=== PATIENT | female | born 1940 | race Caucasian/White ===

== ENCOUNTER → 2018-01-11 16:21 | Outpatient (CLI) | payer MEDICARE, SELFPAY ==
[2018-01-11 17:39] LABS: Anion Gap 10 (5-15); BUN 17 mg/dL (7-18); BUN/Creat Ratio 24.7 RATIO (10-20); Calcium,Total 9.1 mg/dL (8.5-10.1); Chloride 100 mmol/L (98-107); Cholesterol 280 mg/dL (200); Creatinine, Serum 0.69 mg/dL (0.55-1.02); EST Glomerular Filtration Rate 88 mL/min (>60); Est Glom Filt Rate - Afr Amer 106 mL/min (>60); Glucose 85 mg/dL (74-106); High Density Lipoprotein 45 mg/dL; Potassium 3.9 mmol/L (3.5-5.1); Sodium Level 138 mmol/L (136-145); Triglycerides 221 mg/dL; Very Low Density Lipoprotein 44 mg/dL (5-40)
== END ==
PROVIDERS: Family Provider Family Medicine; PCP Family Medicine; Visit Provider Family Medicine
DX: Z00.00 Encounter for general adult medical examination without abnormal findings (principal)
CPT/HCPCS: 36415; 80048; 80061

== ENCOUNTER → 2020-11-04 16:57 | Outpatient (CLI) | payer BC, SELFPAY ==
[2020-11-04 17:57] LABS: Absolute Lymphocyte Count 1.86 X10^3/uL (0.83-4.51); Absolute Neutrophil Count 2.8 X10^3/uL (2.0-7.7); Basophil# 0.02 X10^3/uL; Basophil% 0.4 % (0-1); Eosinophil# 0.13 X10^3/uL; Eosinophils% 2.5 % (0-5); Hematocrit 38.7 % (37-47); Hemoglobin 12.7 g/dL (12.0-15.0); Lymphocyte # 1.86 X10^3/ul (0.83-4.51); Lymphocyte % 35.2 % (19-41); Mean Corp Hgb Conc 32.8 g/dL (32-36); Mean Corpuscular Hgb 29.5 pg (27.0-32.0); Mean Corpuscular Volume 89.8 fL (81-99); Mean Platelet Vol. 11.1 fl (6.2-12.0); Monocyte# 0.43 X10^3/uL; Monocyte% 8.1 % (0-10); NRBC Flagged by Analyzer 0 % (0-5); Neutrophil # 2.84 X10^3/uL (2.7-7.7); Neutrophil % 53.6 % (47-70); Platelet Count 271 K/mm3 (150-450); RBC Distribution Width CV 13.3 % (11.6-14.6); RBC Distribution Width SD 44.2 fl (35.1-43.9); Red Blood Count 4.31 M/mm3 (4.2-5.4); White Blood Count 5.3 K/mm3 (4.4-11.0)
[2020-11-04 18:48] LABS: ALB/GLOB Ratio 1.3 RATIO (0.9-2.4); AST(SGOT) 30 U/L (15-37); Alanine Aminotransfer ALT/SGPT 45 U/L (13-56); Albumin, Serum 3.9 g/dL (3.2-5.0); Alkaline Phosphatase 89 U/L (45-117); Anion Gap 3 (5-15); BUN 15 mg/dL (7-18); BUN/Creat Ratio 25.2 RATIO (10-20); CRP < 2.90 mg/L (0.0-3.0); Calcium,Total 8.4 mg/dL (8.5-10.1); Chloride 104 mmol/L (98-107); EST Glomerular Filtration Rate 103 mL/min (>60); Est Glom Filt Rate - Afr Amer 124 mL/min (>60); Free T3 2.3 pg/mL (2.18-3.98); Globulin 2.9 g/dL (2.2-4.2); Glucose 85 mg/dL (74-106); Potassium 3.9 mmol/L (3.5-5.1); Protein, Total 6.8 g/dL (6.4-8.2); Sodium Level 136 mmol/L (136-145); T4 Free Direct 0.64 ng/dL (0.76-1.46); Thyroid Stim Hormone (TSH) 5.35 uIU/mL (0.358-3.74)
== END ==
PROVIDERS: PCP Family Medicine; Referring Provider Family Medicine; Visit Provider Family Medicine
DX: M13.0 Polyarthritis, unspecified (principal); R79.89 Other specified abnormal findings of blood chemistry
CPT/HCPCS: 36415; 80053; 84439; 84443; 84481; 85025; 86140

== ENCOUNTER → 2022-01-26 | Outpatient (CLI) | payer BC, SELFPAY ==
[2022-01-26 12:18] LABS: Hemoglobin 12.8 g/dL (12.0-15.0); Mean Corpuscular Hgb 29.4 pg (27.0-32.0); Mean Corpuscular Volume 91.7 fL (81-99); Platelet Count 270 K/mm3 (150-450); RBC Distribution Width CV 13.3 % (11.6-14.6); RBC Distribution Width SD 45.1 fl (35.1-43.9); Red Blood Count 4.36 M/mm3 (4.2-5.4); White Blood Count 4.8 K/mm3 (4.4-11.0)
[2022-01-26 12:40] LABS: ALB/GLOB Ratio 1.1 RATIO (0.9-2.4); AST(SGOT) 24 U/L (15-37); Alanine Aminotransfer ALT/SGPT 36 U/L (13-56); Albumin, Serum 3.7 g/dL (3.2-5.0); Alkaline Phosphatase 65 U/L (45-117); Anion Gap 5 (5-15); BUN 16 mg/dL (7-18); BUN/Creat Ratio 24.8 RATIO (10-20); Chloride 100 mmol/L (98-107); Creatinine, Serum 0.65 mg/dL (0.55-1.02); EST Glomerular Filtration Rate 93 mL/min (>60); Est Glom Filt Rate - Afr Amer 113 mL/min (>60); Free T3 2.2 pg/mL (2.18-3.98); Globulin 3.3 g/dL (2.2-4.2); Glucose 84 mg/dL (74-106); Sodium Level 135 mmol/L (136-145); Thyroid Stim Hormone (TSH) 5.96 uIU/mL (0.358-3.74)
== END | disposition home or self-care (01) ==
LOC: MFPLAB 10:35
PROVIDERS: PCP Family Medicine; Referring Provider Family Medicine; Visit Provider Nurse Practitioner Family
DX: R25.2 Cramp and spasm (principal); R79.89 Other specified abnormal findings of blood chemistry
CPT/HCPCS: 36415; 80053; 84439; 84443; 84481; 85027

== ENCOUNTER → 2022-02-15 | Outpatient (CLI) | payer BC, SELFPAY ==
[2022-02-15 12:34] LABS: Magnesium 2.1 mg/dL (1.6-2.6)
== END | disposition home or self-care (01) ==
LOC: MFPLAB 10:40
PROVIDERS: PCP Family Medicine; Visit Provider Nurse Practitioner Family
DX: M62.838 Other muscle spasm (principal)
CPT/HCPCS: 36415; 83735

== ENCOUNTER → 2022-03-28 | Outpatient (CLI) | payer BC, SELFPAY ==
[2022-03-28 15:56] LABS: Thyroid Stim Hormone (TSH) 4.98 uIU/mL (0.358-3.74)
== END | disposition home or self-care (01) ==
LOC: MFPLAB 11:20
PROVIDERS: PCP Family Medicine; Visit Provider Nurse Practitioner Family
DX: R79.89 Other specified abnormal findings of blood chemistry (principal)
CPT/HCPCS: 36415; 84443

== ENCOUNTER 2022-05-27 02:33 | Inpatient (IN) | payer MEDICARE, SELFPAY ==
[2022-05-27 02:34] VITALS: BP 193/83; PULSE 71; RESP 18; TEMP 36.4; O2SAT 100; BMI 22.1
--- NOTE | 2022-05-27 02:58 | CT_ITS ---
STUDY: CT ABDOMEN AND PELVIS WITH CONTRAST REASON FOR EXAM: Female, 81 years old. LLQ pain. TECHNIQUE: IV Contrast: IV 100mL [id number] Enteric contrast: None administered. Axial images obtained. Coronal and sagittal reformatted images provided. Individualized dose optimization techniques were used for this CT. COMPARISON: None. FINDINGS: Partially visualized lower chest: Lung bases unremarkable. Liver: 1 cm well-defined low-density lesion either within or immediately adjacent to the lateral dome of the right lobe, coronal image 55. No other hepatic lesions. Gallbladder and biliary tree: No visible gallstones. No pericholecystic inflammation. No biliary ductal dilation. Pancreas: No pancreatic lesions or inflammation. Spleen: Normal size, no splenic lesions. Adrenal glands: No concerning masses. Kidneys and ureters: Mild bilateral hydronephrosis and proximal hydroureter. No stones. No concerning renal mass. Renal cortical volume within normal limits. Bowel: Appendix not identified. No evidence of appendicitis. No obstruction or inflammation of the bowel. Urinary bladder: No stones or wall thickening. Reproductive:Large complex cystic mass, centered in the left adnexa, but extending across midline in the anterior pelvis, and into the midabdomen, 20 x 12 x 15 cm TRV X AP X CC. This has numerous septations and a nodular, solid component in the left posterior portion of the mass extending into the adnexa. Neither ovary or the uterus is identified separate from this. This has mass effect upon the traversing mid ureters. Vascular: No abdominal aortic aneurysm. Moderate aortoiliac atherosclerosis. Retroperitoneal and peritoneal spaces: Trace ascites. No free air or extraluminal air or abscess. No lymphadenopathy. Osseous: No acute osseous abnormality. Bony demineralization. Prominent degenerative changes lower lumbar spine. Abdominal and pelvic wall: No concerning findings. Any findings described in the findings sections and not included in the impression are incidental and do not require imaging follow-up. CT/Abdomen/Pelvis W IV Cont ONLY IMPRESSION: Large, 20 cm, complex cystic mass filling the anterior upper pelvis and extending into the lower abdomen with a solid nodular component in the left adnexa. 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 Uterine or right ovarian source possible but less likely. The solid, nodular components are suspicious, though not definitive, for malignant neoplasm. No definite metastases identified. A 1 cm hypodensity in or less likely adjacent to the lateral dome of the right lobe of the liver is probably a cyst; a small cystic metastasis could also appear this way but is less likely given the appearance and the fact that there is only one such lesion. The pelvic mass mildly obstructs both mid ureters with resulting mild bilateral hydronephrosis. Electronically Signed: Chino Jean MD at 4:44 EST Reading Location ID and State: [facility] / [place] Tel , Service support ,
--- NOTE | 2022-05-27 03:01 | EDS_ITS ---
HPI HPI - GI History of Present Illness Chief Complaint: Abd Pain Informant: patient Narrative Narrative: Patient is an 81-year-old female with history of hypothyroid as well as multiple abdominal surgeries including hysterectomy presenting with abdominal pain. Patient states tonight around 930 she developed sharp pain in her left lower quadrant. It does not radiate. Its been intermittent in nature. She states she has had a small amount of vomiting with it. About an hour after the pain started she did have a small bowel movement initially was okay and then then. She denies any black or blood in her vomit or her stool. Not taking thing for pain prior to arrival. Has similar episode in March per the where it felt like her bowel was twisted and she sat on the toilet for some time and adhered to a liquid diet and it got better on its own. She is never had it evaluated. No report of fever or chills. No complaints earlier in the day. Denies any numbness or tingling in her legs or back pain. [facility] Medical History Hypothyroidism Home Medications levothyroxine 25 mcg tablet 50 mcg PO DAILY 05/27/22 [History Last Taken Unknown] Allergy/AdvReac Type Severity Reaction Status Date / Time No Known Allergies Allergy Verified 05/27/22 02:37 Social History Smoking Status: Never smoker ROS ROS ED Constitutional Constitutional ED: Denies chills or fever(s) Cardiovascular Cardiovascular: Denies chest pain Respiratory/Chest Respiratory/Chest: Denies cough Gastrointestinal Gastrointestinal: Reports abdominal pain, nausea and vomiting; Denies constipation, diarrhea or melena Genitourinary Genitourinary ED: Denies dysuria or hematuria Musculoskeletal Musculoskeletal: Denies arthralgias, back pain or myalgias Integumentary Denies rash Neurologic Neurologic: Denies paresthesias or weakness Psychiatric Psychiatric: Denies anxiety Hematologic/Lymphatic Hematologic/Lymphatic: Denies easy bleeding or easy bruising EXAM Physical Exam Const Vital Signs: 05/27/22 02:34 05/27/22 05:10 Temperature 97.5 F L Temperature Source Oral Pulse Rate 71 80 Respiratory Rate 18 16 Blood Pressure 193/83 H 175/77 H Blood Pressure Mean 119 109 Pulse Ox 100 95 Oxygen Delivery Method Room Air Room Air Positive well nourished and well developed Constitutional Narrative: Uncomfortable appearing General Appearance ED: well developed; Negative for pallor HEENT Reports moist mucous membranes normocephalic Eyes PERRL Neck supple Resp normal respiratory effort and clear to auscultation bilaterally Cardio regular rate, regular rhythm and no murmurs GI GI Narrative: Mildly distended abdomen. Hyperactive bowel sounds in the left upper quadrant. Small umbilical hernia that is soft and reducible. Patient has significant tenderness and even firmness of the left lower quadrant. No peritoneal signs. No fluid wave on exam. No rebound tenderness. Palpation: Negative for rigid Back/Spine no CVA tenderness Extremity full ROM Extremity Narrative: 1+ bilateral DP pulses General Extremety ED: Negative for edema General Extremity: Negative for edema Neuro moves all extremities Sensorium / Orientation: alert Motor Exam: general weakness Psych mental status grossly normal and thought process normal Skin no wounds General Skin Exam: Negative for jaundice or pallor MDM MDM MDM Narrative Medical decision making narrative: Patient evaluated for severe left lower quadrant abdominal pain. On exam patient does seem to have a distended abdomen and is hypertensive. She has equal distal pulses and I do not think this is a dissection. She does not have a pulsatile mass I do not think this is a ruptured aneurysm. Differential includes diverticulitis, small bowel obstruction, kidney stone as well as other acute intra-abdominal surgical process. Lab work is largely unremarkable including a lactate. Her kidney function is at baseline. She is initially given IV Zofran, fluids and morphine for pain control. Urinalysis is not consistent with infection. CT shows a large 20 cm complex cystic mass filling the pelvis and extending into the lower abdomen with a solid nodular component in the left adnexa most likely left ovarian neoplasm. The pelvic mass is mildly obstructing both mid ureter with resulting mild bilateral hydronephrosis and patient does have a distended bladder. Guzman catheter is placed and patient has over 1600 cc of urine drained. Patient is continue to have pain despite decompression of her bladder and she is given additional 4 mg of IV morphine. Initially spoke with AUDIO DIRECTOR on-call, Dr. Aline Ledezma who agreed that this needs a transfer for [facility] evaluation. Spoke with the patient and her son who state they would like to go to [facility]. Contacted the [facility] transfer line to arrange transfer. Patient is accepted to [facility] by Dr. Turner. Lab Data Attestation: I reviewed the patient's lab results. Labs: Laboratory Results - last 24 hr 05/27/22 05/27/22 05/27/22 02:40 02:40 02:40 WBC 9.5 RBC 4.55 Hgb 13.3 Hct 40.3 MCV 88.6 MCH 29.2 MCHC 33.0 RDW Std Deviation 42.8 RDW Coeff of Judy 13.2 Plt Count 313 MPV 10.2 Immature Gran % (Auto) 0.300 Neut % (Auto) 74.5 H Lymph % (Auto) 17.1 L Wayne % (Auto) 6.1 Eos % (Auto) 1.7 Baso % (Auto) 0.3 Absolute Neuts (auto) 7.1 Absolute Lymphs (auto) 1.63 Nucleated RBC % 0 Sodium 131 L Potassium 3.4 L Chloride 96 L Carbon Dioxide 26.0 Anion Gap 9 BUN 14 Creatinine 0.69 Estim Creat Clear Calc 35.26 Est GFR (MDRD) Af Amer 105 Est GFR (MDRD) Non-Af 86 BUN/Creatinine Ratio 20.3 H Glucose 145 H Lactic Acid 1.8 Calcium 8.9 Total Bilirubin 0.50 AST 20 ALT 33 Alkaline Phosphatase 67 Total Protein 7.4 Albumin 4.2 Globulin 3.2 Albumin/Globulin Ratio 1.3 Urine Color Urine Clarity Urine pH Ur Specific [place] Urine Protein Urine Glucose (UA) Urine Ketones Urine Occult Blood Urine Nitrite Urine Bilirubin Urine Urobilinogen Ur Leukocyte Esterase Urine RBC Urine WBC Ur Squamous Epith Cells Urine Bacteria Urine Mucus 05/27/22 04:20 WBC RBC Hgb Hct MCV MCH MCHC RDW Std Deviation RDW Coeff of Judy Plt Count MPV Immature Gran % (Auto) Neut % (Auto) Lymph % (Auto) Wayne % (Auto) Eos % (Auto) Baso % (Auto) Absolute Neuts (auto) Absolute Lymphs (auto) Nucleated RBC % Sodium Potassium Chloride Carbon Dioxide Anion Gap BUN Creatinine Estim Creat Clear Calc Est GFR (MDRD) Af Amer Est GFR (MDRD) Non-Af BUN/Creatinine Ratio Glucose Lactic Acid Calcium Total Bilirubin AST ALT Alkaline Phosphatase Total Protein Albumin Globulin Albumin/Globulin Ratio Urine Color Yellow Urine Clarity Clear Urine pH 7.0 Ur Specific [place] 1.010 Urine Protein Negative Urine Glucose (UA) Normal Urine Ketones Negative Urine Occult Blood 10 H Urine Nitrite Negative Urine Bilirubin Negative Urine Urobilinogen Normal Ur Leukocyte Esterase Negative Urine RBC 0-5 SEEN Urine WBC 0 SEEN Ur Squamous Epith Cells 0 SEEN Urine Bacteria 0 SEEN Urine Mucus 0 SEEN Radiography Diagnostic Testing: Clinical Impression(s) from Imaging Studies Abdomen/Pelvis CT 05/27/22 02:58 IMPRESSION: Large, 20 cm, complex cystic mass filling the anterior upper pelvis and extending into the lower abdomen with a solid nodular component in the left adnexa. 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 Uterine or right ovarian source possible but less likely. The solid, nodular components are suspicious, though not definitive, for malignant neoplasm. No definite metastases identified. A 1 cm hypodensity in or less likely adjacent to the lateral dome of the right lobe of the liver is probably a cyst; a small cystic metastasis could also appear this way but is less likely given the appearance and the fact that there is only one such lesion. The pelvic mass mildly obstructs both mid ureters with resulting mild bilateral hydronephrosis. Electronically Signed: Chino Jean MD at 4:44 EST Reading Location ID and State: [address] [place] [address] Tel , Service support , Discharge Plan Triage Chief Complaint: Abd Pain ED Provider: Oliva Barajas Dx/Rx/DC Orders Clinical Impression: Mass of left ovary, Acute on chronic urinary retention, Hydronephrosis due to obstruction of bladder, Lower abdominal pain Prescriptions: No Action levothyroxine 25 mcg tablet 50 mcg PO DAILY Label Comments: TAKE 1 TABLET BY MOUTH EVERY MORNING FOR 30 DAYS Primary Care Provider: Desmond Sheth Referrals: Desmond Sheth MD [Primary Care Provider] - Disposition Disposition: Acute Care Hospital Discharge Location: [facility]
[2022-05-27 03:09] LABS: Absolute Lymphocyte Count 1.63 X10^3/uL (0.83-4.51); Absolute Neutrophil Count 7.1 X10^3/uL (2.0-7.7); Basophil# 0.03 X10^3/uL; Basophil% 0.3 % (0-1); Eosinophil# 0.16 X10^3/uL; Eosinophils% 1.7 % (0-5); Hematocrit 40.3 % (37-47); Hemoglobin 13.3 g/dL (12.0-15.0); Lymphocyte # 1.63 X10^3/ul (0.83-4.51); Lymphocyte % 17.1 % (19-41); Mean Corpuscular Hgb 29.2 pg (27.0-32.0); Mean Corpuscular Volume 88.6 fL (81-99); Mean Platelet Vol. 10.2 fl (6.2-12.0); Monocyte# 0.58 X10^3/uL; Monocyte% 6.1 % (0-10); NRBC Flagged by Analyzer 0 % (0-5); Neutrophil % 74.5 % (47-70); Platelet Count 313 K/mm3 (150-450); RBC Distribution Width CV 13.2 % (11.6-14.6); RBC Distribution Width SD 42.8 fl (35.1-43.9); Red Blood Count 4.55 M/mm3 (4.2-5.4); White Blood Count 9.5 K/mm3 (4.4-11.0)
[2022-05-27] MEDS: Ondansetron 4 MG/2 ML Vial IV (03:15)
[2022-05-27] MEDS: 0.9% Normal Saline 1,000 ML 1000 ML IV (03:15)
[2022-05-27] MEDS: Morphine 4 MG/ML Syringe IV ×4 (03:16→17:52)
[2022-05-27 03:43] LABS: ALB/GLOB Ratio 1.3 RATIO (0.9-2.4); AST(SGOT) 20 U/L (15-37); Alanine Aminotransfer ALT/SGPT 33 U/L (13-56); Albumin, Serum 4.2 g/dL (3.2-5.0); Alkaline Phosphatase 67 U/L (45-117); Anion Gap 9 (5-15); BUN 14 mg/dL (7-18); BUN/Creat Ratio 20.3 RATIO (10-20); Calcium,Total 8.9 mg/dL (8.5-10.1); Chloride 96 mmol/L (98-107); Creatinine, Serum 0.69 mg/dL (0.55-1.02); EST Glomerular Filtration Rate 86 mL/min (>60); Est Glom Filt Rate - Afr Amer 105 mL/min (>60); Estimated Creatinine Clearance 35.26 ml/min; Globulin 3.2 g/dL (2.2-4.2); Glucose 145 mg/dL (74-106); Potassium 3.4 mmol/L (3.5-5.1); Protein, Total 7.4 g/dL (6.4-8.2); Sodium Level 131 mmol/L (136-145)
[2022-05-27 03:49] LABS: Lactic Acid 1.8 mmol/L (0.4-1.9)
[2022-05-27 04:29] LABS: Bacteria 0 SEEN /hpf (None Seen); Mucous, Urine 0 SEEN /hpf (<or=2+); Squamous Epithelial Cells - UA 0 SEEN /hpf (5-10); White Blood Cells 0 SEEN /hpf (0-5)
[2022-05-27 04:30] LABS: Color, Urine Yellow (Yellow); Glucose, Dipstick Normal (Normal); Ketone-Dipstick Negative (Negative); Leukocyte Esterase-Dipstick Negative /ul (Negative); Nitrite-Dipstick Negative (Negative); Occult Blood-Urine 10 /ul (Negative); Protein-Dipstick Negative (Negative); Urine Bilirubin Dipstick Negative (Negative); Urine Clarity Clear (Clear); Urine Urobilinogen Normal (Normal)
[2022-05-27 04:49] LABS: Red Blood Cells-Urine 0-5 SEEN /hpf (0-5)
[2022-05-27 05:10] VITALS: BP 175/77; PULSE 80; RESP 16; O2SAT 95
[2022-05-27 09:21] VITALS: BP 111/93
[2022-05-27 15:17] VITALS: BP 128/67; PULSE 73; RESP 16; TEMP 36.8; O2SAT 100
--- NOTE | 2022-05-27 15:49 | ED.RN ---
THIS RN SPOKE WITH PT EXPLAINING UPDATE ON PT TRANSFER SITUATION. PER PT AND PT SON, PT DOES NOT WANT TO BE SENT TO [facility]. SON REPORTS RECENT BAD EXPERIENCE AT [facility] FACILITY. PT AND SON UPDATED THAT DR. CHAPMAN HAS REACHED OUT TO [facility] REQUESTED AND HAVE NOT HEARD BACK FROM THE FACILITY YET. PER SON IT WOULD BE ACCEPTABLE TO SEND PT TO [facility] OR [facility] ALSO. DR. CHAPMAN INFORMED.
[2022-05-27 17:54] VITALS: BP 149/81; PULSE 86; RESP 18; O2SAT 98
--- NOTE | 2022-05-27 17:58 | ED.RN ---
Dinner tray ordered for patient
--- NOTE | 2022-05-27 22:08 | NURSING ---
CALLED FOR UPDATE. SPOKE WITH NANDO WITH THE TRANSFER LINE. HE SAID NO BED STILL, UNFORTUNATELY COULD BE A FEW MORE DAYS, HOWEVER IS PATIENTS CARE BECOMES DETREMENTAL OR ANYTHING CHANGES THAT EFFECTS CARE TO CALL BACK AND THEY CAN CONSULT WITH THE ACCEPTING DOCTOR.
[2022-05-27 22:26] VITALS: BP 127/62; PULSE 92; RESP 16; O2SAT 97
[2022-05-28 01:42] VITALS: BP 143/91; PULSE 98; RESP 15; TEMP 36.7; O2SAT 94
[2022-05-28 01:53] VITALS: BP 143/91; PULSE 98; RESP 15; TEMP 36.7; O2SAT 94
--- NOTE | 2022-05-28 02:00 | PCM.HP.STD ---
HPI - General General Date of Admission: 05/28/22 Date of Service: 05/28/22 HPI Narrative NBA CHAKRABORTY, is a 81 F with a PMH as outlined who was admitted via the ED on 05/28/2022 with a complaitn of abdominal pain which started ~ 2 days prior to presentation. She had sudden onset of sharp left pain in the left lower quadrant with did not radiate. She had assisted nausea and vomiting and said the pain was constant with no aggravating or relieving factors. She does not think she is had pain like this before due to family says that in March she had a similar episode of pain which subsequently resolved. She denied any weight loss, any vaginal bleeding or any other symptoms. Review of symptoms otherwise negative. Vitals in the ED were blood pressure of 143/91 with pulse rate of 98, respiratory to 15 and temperature of 98 Fahrenheit with oxygen saturation of 94% on room air. CBC was unremarkable and BMP showed sodium of 131 with potassium of 3.4 and creatinine of 0.69. Urinalysis showed no evidence of UTI. 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 She also had mild bilateral hydronephrosis. Plan was to transfer patient to [facility] or [facility] for evaluation by [facility] oncology. However patient waited about 22 hours in the ED without getting a bed so she has been admitted pending transfer to the above-mentioned facilities. [facility] Medical History Hypothyroidism Home Medications levothyroxine 25 mcg tablet 50 mcg PO DAILY 05/27/22 [History Last Taken Unknown] Allergy/AdvReac Type Severity Reaction Status Date / Time No Known Allergies Allergy Verified 05/27/22 02:37 Social History Smoking Status: Never smoker ROS Constitutional Constitutional: Reports fatigue, malaise and weakness; Denies anorexia, chills or fever(s) Eyes Eyes: Denies change in vision ENT HEENT: Denies dysphagia, headache(s) or sore throat Cardiovascular Cardiovascular: Denies chest pain, dyspnea on exertion, edema, lightheadedness, orthopnea, palpitations, paroxysmal nocturnal dyspnea or rapid heart rate Respiratory/Chest Respiratory/Chest: Denies cough, shortness of breath at rest or shortness of breath with exertion Gastrointestinal Gastrointestinal: Reports abdominal pain, nausea, vomiting and other Details: abdominal distension ; Denies constipation, diarrhea, dyspepsia or hematochezia Genitourinary Genitourinary: Denies burning urination or dysuria Musculoskeletal Musculoskeletal: Denies arthralgias or joint pain Neurologic Neurologic: Denies confusion, dizziness, focal weakness, headache(s) or seizures Psychiatric Psychiatric: Denies anxiety or depression Hematologic/Lymphatic Hematologic/Lymphatic: Denies anemia Vital Signs Vital Signs Vital Signs: 05/27/22 02:34 05/27/22 05:10 05/27/22 09:21 Temperature 97.5 F L Temperature Source Oral Pulse Rate 71 80 Respiratory Rate 18 16 Blood Pressure 193/83 H 175/77 H 111/93 H Blood Pressure Mean 119 109 99 Pulse Ox 100 95 Oxygen Delivery Method Room Air Room Air 05/27/22 15:17 05/27/22 17:54 05/27/22 22:26 Temperature 98.2 F Temperature Source Oral Pulse Rate 73 86 92 Respiratory Rate 16 18 16 Blood Pressure 128/67 H 149/81 H 127/62 H Blood Pressure Mean 87 103 83 Pulse Ox 100 98 97 Oxygen Delivery Method Room Air Room Air Room Air 05/28/22 01:42 05/28/22 01:53 Temperature 98.0 F 98.0 F Temperature Source Temporal Temporal Pulse Rate 98 98 Respiratory Rate 15 15 Blood Pressure 143/91 H 143/91 H Blood Pressure Mean 108 108 Pulse Ox 94 94 Oxygen Delivery Method Room Air Room Air Weight Weight: 125 lb 3.561 oz Body Mass Index (BMI) 22.1 Physical Exam Const alert, oriented x3 and no apparent distress General Appearance: cooperative HEENT normocephalic, head/scalp atraumatic, hearing grossly normal bilaterally and moist oral mucous membranes Mouth: oral and palatal mucosa normal Eyes PERRL, EOMs intact bilaterally and conjunctivae normal Neck no lymphadenopathy and supple Resp normal respiratory effort, no retractions, no use of accessory muscles and clear to auscultation bilaterally Cardio regular rate, regular rhythm, S1 normal heart sound, S2 normal heart sound and no murmurs GI soft to palpation, non-tender and non-distended GI Narrative: nontender left lower quadrant abdominal mass, which is nontender, extends up to the umbilicus, unable to get beneath the mass with palpation Extremity normal to inspection, full ROM and no clubbing, cyanosis or edema Neuro oriented x3, CN's II-XII intact bilaterally, moves all extremities and no focal motor deficits Sensorium / Orientation: awake and alert Motor Exam: strength 5/5 throughout Psych affect normal Results Lab / Micro Data Result Diagrams: 05/27/22 02:40 05/27/22 02:40 Labs: Laboratory Results - last 24 hr 05/27/22 02:40: WBC 9.5, RBC 4.55, Hgb 13.3, Hct 40.3, MCV 88.6, MCH 29.2, MCHC 33.0, RDW Std Deviation 42.8, RDW Coeff of Judy 13.2, Plt Count 313, MPV 10.2, Immature Gran % (Auto) 0.300, Neut % (Auto) 74.5 H, Lymph % (Auto) 17.1 L, [place] % (Auto) 6.1, Eos % (Auto) 1.7, Baso % (Auto) 0.3, Absolute Neuts (auto) 7.1, Absolute Lymphs (auto) 1.63, Nucleated RBC % 0 05/27/22 02:40: Sodium 131 L, Potassium 3.4 L, Chloride 96 L, Carbon Dioxide 26.0, Anion Gap 9, BUN 14, Creatinine 0.69, Estim Creat Clear Calc 35.26, Est GFR (MDRD) Af Amer 105, Est GFR (MDRD) Non-Af 86, BUN/Creatinine Ratio 20.3 H, Glucose 145 H, Calcium 8.9, Total Bilirubin 0.50, AST 20, ALT 33, Alkaline Phosphatase 67, Total Protein 7.4, Albumin 4.2, Globulin 3.2, Albumin/Globulin Ratio 1.3 05/27/22 02:40: Lactic Acid 1.8 05/27/22 04:20: Urine Color Yellow, Urine Clarity Clear, Urine pH 7.0, Ur Specific [place] 1.010, Urine Protein Negative, Urine Glucose (UA) Normal, Urine Ketones Negative, Urine Occult Blood 10 H, Urine Nitrite Negative, Urine Bilirubin Negative, Urine Urobilinogen Normal, Ur Leukocyte Esterase Negative, Urine RBC 0-5 SEEN, Urine WBC 0 SEEN, Ur Squamous Epith Cells 0 SEEN, Urine Bacteria 0 SEEN, Urine Mucus 0 SEEN Micro: Microbiology 05/27/22 05:20 Nasal Secretion SARS-CoV-2 Antigen (Rapid) - Final Radiology Impression Abdomen/Pelvis CT 05/27/22 02:58 IMPRESSION: Large, 20 cm, complex cystic mass filling the anterior upper pelvis and extending into the lower abdomen with a solid nodular component in the left adnexa. 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 Uterine or right ovarian source possible but less likely. The solid, nodular components are suspicious, though not definitive, for malignant neoplasm. No definite metastases identified. A 1 cm hypodensity in or less likely adjacent to the lateral dome of the right lobe of the liver is probably a cyst; a small cystic metastasis could also appear this way but is less likely given the appearance and the fact that there is only one such lesion. The pelvic mass mildly obstructs both mid ureters with resulting mild bilateral hydronephrosis. Electronically Signed: Chino Jean MD at 4:44 EST Reading Location ID and State: [facility] / [place] Tel , Service support , Assessment & Plan Assessment/Plan (1) Mass of left ovary: (2) Hydronephrosis due to obstruction of bladder: PLAN: Plan #Left adnexal mass, likely ovarian concerning for malignancy admit to med surg patient awaiting transfer to [facility], pending bed availability. Family do not want patient to go to [facility] under any circumstances no gyne oncology available in [facility], and patient and family counseled that they will not get definite treatment here whilst waiting PO tylenol, po oxycodone and IV morphine prn for pain #Bilateral mild hydronephrosis due to obstruction by pelvic mass currently making urine. will monitor. If it worsens, consult urology insert restrepo catheter #Hypothyroidism; on synthroid DVT prophylaxis: lovenox COde status: full code Patient and family counseled extensively about different types of CODE STATUS including full code, DNR CCA and DNR CCA. Patient elects to be full code. Total [id number] time 16 minutes. Disposition: awaiting transfer to [facility] Charges/Coding Visit Charges Inpatient E&M: 67205 Init Hosp L3 Procedures Hospitalists Procedures: 00323 Advncd Care Plan 30 Min
[2022-05-28] MEDS: Ondansetron 4 MG/2 ML Vial IV (02:08)
[2022-05-28] MEDS: Morphine 4 MG/ML Syringe IV (02:09)
[2022-05-28 03:12] VITALS: BP 145/73; PULSE 91; RESP 18; TEMP 36.6; O2SAT 93
[2022-05-28 03:19] VITALS: BMI 21.6
[2022-05-28] MEDS: oxyCODONE 5 MG Tablet PO ×4 (03:43→19:44)
[2022-05-28] MEDS: Levothyroxine 50 MCG Tablet PO (05:55)
[2022-05-28] MEDS: Potassium Chloride Oral Tablet 20 MEQ PO (05:55)
[2022-05-28 07:19] LABS: Absolute Lymphocyte Count 1.16 X10^3/uL (0.83-4.51); Absolute Neutrophil Count 7.9 X10^3/uL (2.0-7.7); Basophil# 0.01 X10^3/uL; Basophil% 0.1 % (0-1); Eosinophil# 0.03 X10^3/uL; Eosinophils% 0.3 % (0-5); Hemoglobin 11.3 g/dL (12.0-15.0); Lymphocyte # 1.16 X10^3/ul (0.83-4.51); Mean Corp Hgb Conc 32.3 g/dL (32-36); Mean Corpuscular Hgb 29.1 pg (27.0-32.0); Mean Corpuscular Volume 90.2 fL (81-99); Mean Platelet Vol. 10.1 fl (6.2-12.0); Monocyte# 0.52 X10^3/uL; Monocyte% 5.4 % (0-10); NRBC Flagged by Analyzer 0 % (0-5); Neutrophil # 7.87 X10^3/uL (2.7-7.7); Neutrophil % 81.8 % (47-70); Platelet Count 279 K/mm3 (150-450); RBC Distribution Width CV 13.2 % (11.6-14.6); RBC Distribution Width SD 44.1 fl (35.1-43.9); Red Blood Count 3.88 M/mm3 (4.2-5.4); White Blood Count 9.6 K/mm3 (4.4-11.0)
--- NOTE | 2022-05-28 07:41 | PN.HOSP_ITS ---
Subjective Subjective Follow-up for abdominal pain most likely due to left complex adnexal mass most likely ovarian neoplasm Objective Data Objective Data Vital Signs: Vital Signs Temp Pulse Resp BP Pulse Ox O2 Del Method 97.8 F 91 18 145/73 H 93 Room Air 05/28/22 03:12 05/28/22 03:12 05/28/22 03:12 05/28/22 03:12 05/28/22 03:12 05/28/22 03:30 Oxygen Delivery Method Room Air Weight: 122 lb 2.177 oz Body Mass Index (BMI) 21.6 Intake & Output: Intake and Output for Last 24 Hours 05/26/22 05/27/22 05/28/22 23:59 23:59 23:59 Intake Total 1000 / 1000 300 / 300 Output Total 1200 / 1200 600 / 600 Balance -200 / -200 -300 / -300 Lab / Micro Data Result Diagrams: 05/28/22 06:42 05/28/22 06:42 Labs: Laboratory Results - last 24 hr 05/28/22 06:42: WBC 9.6, RBC 3.88 L, Hgb 11.3 L, Hct 35.0 L, MCV 90.2, MCH 29.1, MCHC 32.3, RDW Std Deviation 44.1 H, RDW Coeff of Judy 13.2, Plt Count 279, MPV 10.1, Immature Gran % (Auto) 0.400, Neut % (Auto) 81.8 H, Lymph % (Auto) 12.0 L, [place] % (Auto) 5.4, Eos % (Auto) 0.3, Baso % (Auto) 0.1, Absolute Neuts (auto) 7.9 H, Absolute Lymphs (auto) 1.16, Nucleated RBC % 0 Micro: Microbiology 05/27/22 05:20 Nasal Secretion SARS-CoV-2 Antigen (Rapid) - Final Physical Exam Narrative Patient still has abdominal pain predominantly left lower quadrant. Seems mild distention but patient denies tightening sensation. Physical exam General: Alert, Oriented x3, Cooperative HEENT: Atraumatic, PERRLA, EOMI, Normocephalic Oral: No Gingival or Mucosal Lesions/ Ulcerations Neck: Supple, No JVD, Negative Carotid Bruits Lungs: Air entry diminished in bilateral lung bases. No crepitation/rhonchi Cardiovascular: Regular rate, Regular Rhythm, Normal S1, Normal S2, No murmurs Abdomen: Bowel Sounds Present, Soft, mild distended. Tenderness present over left lower quadrant. No palpable mass. : No renal angle tenderness. No suprapubic tenderness. Extremities: No edema, Capillary Refill Less than 3 Seconds Skin: No rashes, No breakdown Musculoskeletal: No Tenderness to Palpation of Joints or Extremities Neurological: Cranial nerves II-XII grossly intact, DTR 2+/4 and Symmetrical, Neuro grossly intact Psych/Mental Status: Flat affect. Assessment & Plan Assessment/Plan (1) Mass of left ovary: (2) Hydronephrosis due to obstruction of bladder: PLAN: Plan 81-year-old female was admitted with abdominal pain for 2 days prior to admission, left-sided sharp in LLQ, constant with no aggravating or relieving factors associated with nausea and vomiting. 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 Mild bilateral hydronephrosis. Patient was admitted as she was getting more than 22 hours in ED without getting a bed and [facility] [employer] oncology in [facility] or [facility] #Left adnexal mass, likely ovarian * concerning for malignancy * Admitted to MedSurg floor. * patient awaiting transfer to [facility], pending bed availability. Family do not want patient to go to [facility] under any circumstances * no gyne oncology available in [facility], and patient and family counseled that they will not get definite treatment here whilst waiting * PO tylenol, po oxycodone and IV morphine prn for pain #Bilateral mild hydronephrosis due to obstruction by pelvic mass * Continue monitor. If it worsens, consult urology * Guzman catheter draining clear urine. Negative fluid balance -500 mL. Total 800 mL urine output. #Hypothyroidism; on synthroid DVT prophylaxis: lovenox COde status: full code * Patient and family counseled extensively about different types of CODE STATUS including full code, DNR CCA and DNR CCA. Patient elects to be full code. Disposition: Patient awaiting transfer to [facility]
[2022-05-28 08:47] LABS: AST(SGOT) 16 U/L (15-37); Alanine Aminotransfer ALT/SGPT 26 U/L (13-56); Albumin, Serum 3.2 g/dL (3.2-5.0); Alkaline Phosphatase 51 U/L (45-117); Anion Gap 7 (5-15); BUN 13 mg/dL (7-18); BUN/Creat Ratio 19.6 RATIO (10-20); Calcium,Total 8.3 mg/dL (8.5-10.1); Chloride 97 mmol/L (98-107); Creatinine, Serum 0.66 mg/dL (0.55-1.02); EST Glomerular Filtration Rate 90 mL/min (>60); Est Glom Filt Rate - Afr Amer 109 mL/min (>60); Estimated Creatinine Clearance 33.71 ml/min; Globulin 3.2 g/dL (2.2-4.2); Glucose 109 mg/dL (74-106); Protein, Total 6.4 g/dL (6.4-8.2); Sodium Level 131 mmol/L (136-145)
[2022-05-28 10:05] VITALS: BP 158/71; PULSE 92; RESP 16; TEMP 36.6; O2SAT 99
[2022-05-28 15:39] VITALS: BP 134/70; PULSE 93; RESP 16; TEMP 36.9; O2SAT 95
[2022-05-28] MEDS: Acetaminophen 325 MG Tablet 650 MG PO (19:45)
[2022-05-28 20:30] VITALS: BP 147/69; PULSE 96; RESP 16; TEMP 36.9; O2SAT 96
[2022-05-29] MEDS: Acetaminophen 325 MG Tablet 650 MG PO ×2 (02:56→20:49)
[2022-05-29] MEDS: oxyCODONE 5 MG Tablet PO ×3 (02:56→20:50)
[2022-05-29 03:00] VITALS: BP 136/69; PULSE 95; RESP 18; TEMP 37.1; O2SAT 97
[2022-05-29] MEDS: Levothyroxine 50 MCG Tablet PO (05:42)
[2022-05-29] MEDS: 0.9% Saline Lock 10 ML Syringe IV ×2 (05:53→17:16)
[2022-05-29] MEDS: Morphine 2 MG/ML Syringe IV ×3 (05:53→17:16)
[2022-05-29 09:30] VITALS: BP 153/74; PULSE 97; RESP 18; TEMP 37; O2SAT 94
--- NOTE | 2022-05-29 09:49 | NURSING ---
[facility] transfer line called-there is no bed available at this time. Updated VS given.
--- NOTE | 2022-05-29 10:41 | PCM.PN.HOSP ---
Subjective Subjective Patient is still has severe abdominal pain predominantly left lower quadrant 10/10 slightly gets better 6/10 after medication. It is constant and diffuse pain. Objective Data Objective Data Vital Signs: Vital Signs Temp Pulse Resp BP Pulse Ox O2 Del Method 98.8 F 95 18 136/69 H 97 Room Air 05/29/22 03:00 05/29/22 03:00 05/29/22 03:00 05/29/22 03:00 05/29/22 03:00 05/29/22 03:00 Oxygen Delivery Method Room Air Weight: 122 lb 2.177 oz Body Mass Index (BMI) 21.6 Intake & Output: Intake and Output for Last 24 Hours 05/27/22 05/28/22 05/29/22 23:59 23:59 23:59 Intake Total 1000 / 1000 700 / 900 200 / 200 Output Total 1200 / 1200 950 / 1300 750 / 750 Balance -200 / -200 -250 / -400 -550 / -550 Lab / Micro Data Result Diagrams: 05/28/22 06:42 05/28/22 06:42 Micro: Microbiology 05/27/22 05:20 Nasal Secretion SARS-CoV-2 Antigen (Rapid) - Final Physical Exam Narrative Patient still has abdominal pain predominantly left lower quadrant. Seems mild distention but patient denies tightening sensation. Physical exam General: Alert, Oriented x3, Cooperative HEENT: Atraumatic, PERRLA, EOMI, Normocephalic Oral: Oral mucosa moist. No Gingival or Mucosal Lesions/ Ulcerations Neck: Supple, No JVD, Negative Carotid Bruits Lungs: Air entry diminished in bilateral lung bases. No crepitation/rhonchi Cardiovascular: Regular rate, Regular Rhythm, Normal S1, Normal S2, murmur present over left lower sternal border. Abdomen: Bowel Sounds Present, Soft, mild distended. Tenderness present all over but predominantly left lower quadrant. No palpable mass. : No renal angle tenderness. No suprapubic tenderness. Extremities: No edema, Capillary Refill Less than 3 Seconds Skin: No rashes, No breakdown Musculoskeletal: No Tenderness to Palpation of Joints or Extremities Neurological: Cranial nerves II-XII grossly intact, DTR 2+/4 and Symmetrical, Neuro grossly intact Psych/Mental Status: Flat affect. Assessment & Plan Assessment/Plan (1) Mass of left ovary: (2) Hydronephrosis due to obstruction of bladder: PLAN: Plan 81-year-old female was admitted with abdominal pain for 2 days prior to admission, left-sided sharp in LLQ, constant with no aggravating or relieving factors associated with nausea and vomiting. 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 Mild bilateral hydronephrosis. Patient was admitted as she was getting more than 22 hours in ED without getting a bed and [employer] ENGINE[employer] oncology in [facility] or [facility] #Left adnexal mass, likely ovarian concerning for malignancy Admitted to [facility] floor. patient awaiting transfer to [facility], pending bed availability. Family do not want patient to go to [facility] under any circumstances no gyne oncology available in [facility], and patient and family counseled that they will not get definite treatment here whilst waiting PO tylenol, po oxycodone and IV morphine prn for pain 05/29: No significant change. Patient requires heavy dose of pain medications. Awaiting bed. #Bilateral mild hydronephrosis due to obstruction by pelvic mass Continue monitor. If it worsens, consult urology Guzman catheter draining clear urine. Negative fluid balance -500 mL. Total 800 mL urine output. #Hypothyroidism; on synthroid DVT prophylaxis: lovenox COde status: full code Patient and family counseled extensively about different types of CODE STATUS including full code, DNR CCA and DNR CCA. Patient elects to be full code. Disposition: Patient awaiting transfer to [facility] Charges/Coding Visit Charges Inpatient E&M: 17285 [facility] Hosp L2
[2022-05-29 17:12] VITALS: BP 143/63; PULSE 106; RESP 16; TEMP 37.2; O2SAT 95
[2022-05-29 20:45] VITALS: BP 152/63; PULSE 105; RESP 16; TEMP 36.9; O2SAT 95
[2022-05-30] MEDS: oxyCODONE 5 MG Tablet PO ×3 (02:40→16:11)
[2022-05-30] MEDS: Acetaminophen 325 MG Tablet 650 MG PO ×3 (02:43→16:11)
[2022-05-30 02:46] VITALS: BP 140/70; PULSE 92; RESP 16; TEMP 36.9; O2SAT 97
[2022-05-30] MEDS: Levothyroxine 50 MCG Tablet PO (05:39)
[2022-05-30] MEDS: Morphine 2 MG/ML Syringe IV (06:16)
[2022-05-30 06:40] LABS: Absolute Lymphocyte Count 1.43 X10^3/uL (0.83-4.51); Absolute Neutrophil Count 10.8 X10^3/uL (2.0-7.7); Basophil# 0.01 X10^3/uL; Basophil% 0.1 % (0-1); Eosinophil# 0.07 X10^3/uL; Eosinophils% 0.5 % (0-5); Hemoglobin 11.8 g/dL (12.0-15.0); Lymphocyte # 1.43 X10^3/ul (0.83-4.51); Lymphocyte % 10.6 % (19-41); Mean Corp Hgb Conc 33.7 g/dL (32-36); Mean Corpuscular Hgb 29.2 pg (27.0-32.0); Mean Corpuscular Volume 86.6 fL (81-99); Mean Platelet Vol. 10.2 fl (6.2-12.0); Monocyte# 1.05 X10^3/uL; Monocyte% 7.8 % (0-10); NRBC Flagged by Analyzer 0 % (0-5); Neutrophil # 10.81 X10^3/uL (2.7-7.7); Neutrophil % 80.6 % (47-70); Platelet Count 279 K/mm3 (150-450); RBC Distribution Width CV 12.7 % (11.6-14.6); RBC Distribution Width SD 40.1 fl (35.1-43.9); Red Blood Count 4.04 M/mm3 (4.2-5.4); White Blood Count 13.4 K/mm3 (4.4-11.0)
[2022-05-30 07:15] LABS: Anion Gap 9 (5-15); BUN 8 mg/dL (7-18); BUN/Creat Ratio 18.2 RATIO (10-20); Calcium,Total 8.3 mg/dL (8.5-10.1); Chloride 86 mmol/L (98-107); Creatinine, Serum 0.44 mg/dL (0.55-1.02); EST Glomerular Filtration Rate 145 mL/min (>60); Est Glom Filt Rate - Afr Amer 175 mL/min (>60); Estimated Creatinine Clearance 33.71 ml/min; Glucose 108 mg/dL (74-106); Potassium 4.2 mmol/L (3.5-5.1); Sodium Level 121 mmol/L (136-145)
[2022-05-30] MEDS: Enoxaparin 40 MG/0.4 ML Syringe SC (08:31)
[2022-05-30 08:35] VITALS: BP 149/87; PULSE 95; RESP 16; TEMP 36.6; O2SAT 94
--- NOTE | 2022-05-30 09:57 | PCM.PN.HOSP ---
Subjective Subjective Follow-up on right ovarian mass: Patient was seen and examined. Patient denies any abdominal pain, nausea or vomiting. Awaiting transfer to acute hospital for gyne-oncology. Objective Data Objective Data Vital Signs: Vital Signs Temp Pulse Resp BP Pulse Ox O2 Del Method 97.9 F 95 16 149/87 H 94 Room Air 05/30/22 08:35 05/30/22 08:35 05/30/22 08:35 05/30/22 08:35 05/30/22 08:35 05/30/22 08:35 Oxygen Delivery Method Room Air Weight: 55.4 kg Body Mass Index (BMI) 21.6 Intake & Output: Intake and Output for Last 24 Hours 05/28/22 05/29/22 05/30/22 23:59 23:59 23:59 Intake Total 700 / 900 550 / 1050 750 / 750 Output Total 950 / 1300 1175 / 1375 400 / 400 Balance -250 / -400 -625 / -325 350 / 350 Lab / Micro Data Result Diagrams: 05/30/22 05:32 05/30/22 05:32 Labs: Laboratory Results - last 24 hr 05/30/22 05:32: WBC 13.4 H, RBC 4.04 L, Hgb 11.8 L, Hct 35.0 L, MCV 86.6, MCH 29.2, MCHC 33.7, RDW Std Deviation 40.1, RDW Coeff of Judy 12.7, Plt Count 279, MPV 10.2, Immature Gran % (Auto) 0.400, Neut % (Auto) 80.6 H, Lymph % (Auto) 10.6 L, [place] % (Auto) 7.8, Eos % (Auto) 0.5, Baso % (Auto) 0.1, Absolute Neuts (auto) 10.8 H, Absolute Lymphs (auto) 1.43, Nucleated RBC % 0 05/30/22 05:32: Sodium 121 L, Potassium 4.2, Chloride 86 L, Carbon Dioxide 26.0, Anion Gap 9, BUN 8, Creatinine 0.44 L, Estim Creat Clear Calc 33.71, Est GFR (MDRD) Af Amer 175, Est GFR (MDRD) Non-Af 145, BUN/Creatinine Ratio 18.2, Glucose 108 H, Calcium 8.3 L Micro: Microbiology 05/27/22 05:20 Nasal Secretion SARS-CoV-2 Antigen (Rapid) - Final Physical Exam Narrative Physical exam: General: Alert, Oriented x3, Cooperative, appears frail HEENT: Atraumatic Oral: Moist Mucosa Neck: Supple Lungs: Clear to auscultation Cardiovascular: HS I+II, regular, no murmurs Abdomen: Abdominal distention, bowel Sounds Present, Soft, Non Tender Extremities: No edema Skin: No rashes, No breakdown Neurological: Grossly intact Psych/Mental Status: Appropriate Assessment & Plan Assessment/Plan (1) Mass of left ovary: (2) Hydronephrosis due to obstruction of bladder: PLAN: Plan 1. Acute left ovarian mass, awaiting transfer to tertiary facility Continue with pain control 2. Bilateral mild hydronephrosis due to obstruction by pelvic mass Status post restrepo catheter placement 3. Hyponatremia, acute on chronic, Na is 121 from 131 Appears to have been stable at 131. Will repeat, if elevated, will work up for hyponatremia 4. Hypothyroidism, continue on synthroid 4. DVT prophylaxis - Lovenox SC Charges/Coding Visit Charges Inpatient E&M: 38666 Subs Hosp L2
[2022-05-30 13:29] LABS: Anion Gap 8 (5-15); BUN 11 mg/dL (7-18); BUN/Creat Ratio 25.9 RATIO (10-20); Calcium,Total 8.6 mg/dL (8.5-10.1); Chloride 87 mmol/L (98-107); Creatinine, Serum 0.42 mg/dL (0.55-1.02); EST Glomerular Filtration Rate 151 mL/min (>60); Est Glom Filt Rate - Afr Amer 183 mL/min (>60); Estimated Creatinine Clearance 33.71 ml/min; Glucose 114 mg/dL (74-106); Potassium 4.9 mmol/L (3.5-5.1); Sodium Level 118 mmol/L (136-145)
[2022-05-30 16:00] VITALS: BP 169/90; PULSE 97; RESP 17; TEMP 36.5; O2SAT 97
[2022-05-30] MEDS: 0.9% Saline Lock 10 ML Syringe IV (17:18)
[2022-05-30] MEDS: Lactated Ringers 1,000 ML 75 ML IV (17:49)
--- NOTE | 2022-05-30 18:58 | PCA ---
RECIEVED A CALL FROM [facility] SAYING THEY HAVE A BED FOR THE PATIENT GOING TO ROOM 1232 ON [address] AT THE [facility]. CALLED TRANSPORT FOR PATIENT AT [phone] AND PICKUP [phone] SCHEDULED THROUGH [facility]
[2022-05-30] MEDS: Morphine 2 MG/ML Syringe 1 MG IV (19:29)
[2022-05-30] MEDS: Ondansetron 4 MG/2 ML Vial IV (19:31)
--- NOTE | 2022-05-30 19:34 | NURSING ---
report called to yi at [facility], [facility]. family updated w/visiting hours, floor and bed#. dona strong rn aware to call [facility] and update them on pt departure
[2022-05-30 20:20] VITALS: BP 169/93; PULSE 102; RESP 18; TEMP 37.2; O2SAT 94
--- NOTE | 2022-05-30 21:23 | NURSING ---
called [facility] and spoke to Urbano ROBERTS, gave her an update regarding pt and that ambulance just left 10 mins ago. made here aware pt had morphine and chauncey at 1929.
--- NOTE | 2022-05-31 06:58 | PCM.DC.SUM ---
Providers Date of Admission: 05/28/22 Date of Discharge: 05/30/22 Primary Care Physician: Dr. Desmond Sheth MD Reason For Visit: LEFT ADNEXAL MASS Diagnosis Discharge Diagnosis (1) Mass of left ovary: Status: Acute Code(s): N83.8 - Other noninflammatory disorders of ovary, fallopian tube and broad ligament (2) Hydronephrosis due to obstruction of bladder: Status: Acute Code(s): N13.30 - Unspecified hydronephrosis; N32.0 - Bladder-neck obstruction Plan 1. Acute left ovarian mass 2. Bilateral mild hydronephrosis due to obstruction by pelvic mass 3. Hyponatremia 4. Hypothyroidism Medications at Discharge Home Medications levothyroxine 25 mcg tablet 50 mcg PO DAILY 05/27/22 Hospital Course Operations None Procedures None Summary of Care Provided Minutes Spent on Discharge: 35 Hospital Course: 81-year-old female past medical history of hypothyroidism who comes in with complaints of abdominal pain that started 2 days prior to admission. Abdominal pain was located in the left lower quadrant, associated with nausea and vomiting. Patient read as needed. Stable. CBCD was unremarkable. BMP was remarkable for sodium of 131, potassium 3.4. CT of the abdomen pelvis shows a large 20 cm complex extensive mass within the anterior upper pelvis extending to the lower abdomen which is solid nodular component in the left adnexa. There was also evidence of bilateral hydronephrosis. Patient was recommended to be discharged to a tertiary facility for [employer] oncology evaluation. She had a Guzman catheter placed and was monitored pending transfer. She was accepted at [facility]. Prior to transfer, patient had worsening hyponatremia, sodium dropped to 118, likely secondary to dehydration and did receive IV fluids. Physical Exam Narrative see progress note of the day Weight / BMI Weight Weight: 55.4 kg Body Mass Index (BMI) 21.6 ABG / Lab / Microbiology Data Result Diagrams: 05/30/22 05:32 05/30/22 12:40 Laboratory: Laboratory Results - last 24 hr 05/30/22 05:32: Sodium 121 L, Potassium 4.2, Chloride 86 L, Carbon Dioxide 26.0, Anion Gap 9, BUN 8, Creatinine 0.44 L, Estim Creat Clear Calc 33.71, Est GFR (MDRD) Af Amer 175, Est GFR (MDRD) Non-Af 145, BUN/Creatinine Ratio 18.2, Glucose 108 H, Calcium 8.3 L 05/30/22 12:40: Sodium 118 L*, Potassium 4.9, Chloride 87 L, Carbon Dioxide 23.0, Anion Gap 8, BUN 11, Creatinine 0.42 L, Estim Creat Clear Calc 33.71, Est GFR (MDRD) Af Amer 183, Est GFR (MDRD) Non-Af 151, BUN/Creatinine Ratio 25.9 H, Glucose 114 H, Calcium 8.6 Microbiology: Microbiology 05/27/22 05:20 Nasal Secretion SARS-CoV-2 Antigen (Rapid) - Final D/C Instructions Discharge Diet: No restrictions Meaningful Use Info Meaningful Use Diagnoses (Choose all that apply): None applicable Discharge Plan Admission Admit Date/Time: 05/28/22 01:19 Primary Reason for Your Visit: Acute left ovarian mass Attending Provider: Sylvia Ornelas Primary Care Provider: Desmond Sheth Consulting Providers: Brandee Elias ; Stefan Moyer Discharge Orders/Prescriptions Prescriptions: No Action levothyroxine 25 mcg tablet 50 mcg PO DAILY Label Comments: TAKE 1 TABLET BY MOUTH EVERY MORNING FOR 30 DAYS Referrals / Follow Up: Desmond Sheth MD [Primary Care Provider] - Disposition Disposition (needs filled in before D/C Order can be placed): Acute [facility]
== END 2022-05-30 21:10 | disposition short-term general hospital (02) | DRG 760 ==
LOC: ED 05-28 01:43 → MS3 05-28 02:45
PROVIDERS: Emergency Medicine; Internal Medicine; Admitting Provider Student in an Organized Health Care Education/Training Program; Emergency Provider Emergency Medicine; PCP Family Medicine; Visit Provider Internal Medicine
DX: N83.8 Other noninflammatory disorders of ovary, fallopian tube and broad ligament (principal); E87.1 Hypo-osmolality and hyponatremia; N13.0 Hydronephrosis with ureteropelvic junction obstruction; E03.9 Hypothyroidism, unspecified; E86.0 Dehydration; N32.0 Bladder-neck obstruction; Z90.710 Acquired absence of both cervix and uterus; Z79.899 Other long term (current) drug therapy
CPT/HCPCS: 36415; 51702; 74177; 80048; 80053; 81001; 83605; 85025; 87811; 99284; J7030; J7040; J7120; Q9967; A4216; J2405